=== PATIENT | male | born 1970 | race Hispanic/Latino ===

== ENCOUNTER 2019-12-27 16:01 | Inpatient (IN) | payer MEDICARE, OTHER ==
[2019-12-26 20:50] VITALS: BP 105/48
[~2019-12-27] VITALS: Ht 175.3 cm; Wt 127.0 kg
[~2019-12-27 16:01] MED LIST: AMBIEN10 MG PO; ATORVASTATIN CA20 MG PO; BASAGLAR K100 UNIT/1 SQ; CEFTIN500 MG PO; DOXYCYCLINE HY100 MG PO; GLYBURIDE; JANUMET XR 1001 EACH PO; LANTUS100 UNITS/; METFORMIN HCL500 MG PO; NITROFURANTOIN100 MG PO; NORCO 10-325 T1 EACH PO
[2019-12-27] MEDS ORDERED: SODIUM CHLORIDE 0.9% 1000ML 1,000 ML IV SCH ×2 (16:15→17:30)
[2019-12-27 16:32] LABS: BILIRUBIN,URINE SMALL (NEGATIVE); CLARITY,URINE SL CLOUDY (CLEAR); COLOR,URINE ORANGE (YELLOW); KETONES,URINE TRACE (NEGATIVE); LEUKOCYTE ESTERASE ,URINE LARGE (NEGATIVE); NITRITE,URINE POSITIVE (NEGATIVE); PROTEIN,URINE DIPSTICK >=300 (NEGATIVE); URINE UROBILINOGEN 2 mg/dL (0.2 - 1)
[2019-12-27 16:35] LABS: BASOPHILS # (AUTO) 0.1 (0.0-0.1); BASOPHILS % 0.2 % (0.0-1.0); EOSINOPHILS # (AUTO) 0.1 (0.0-0.4); EOSINOPHILS % 0.3 % (0.0-6.0); HEMATOCRIT 29.4 % (38.2-49.6); HEMOGLOBIN 9.4 g/dL (14.0-18.0); LYMPHOCYTES # (AUTO) 1.8 (1.0-3.2); LYMPHOCYTES % 7.8 % (18.0-39.1); MEAN CORPUSCULAR HEMOGLOBIN 25.5 pg (28-32); MEAN CORPUSCULAR VOLUME 79.9 fL (81-99); MONOCYTES # (AUTO) 1.2 (0.2-0.8); MONOCYTES % 4.9 % (4.4-11.3); NEUTROPHILS # (AUTO) 20.2 (2.1-6.9); NEUTROPHILS % 85.9 % (38.7-80.0); PLATELET COUNT 358 x10e3/uL (140-360); RED BLOOD COUNT 3.68 x10e6/uL (4.3-5.7); RED CELL DISTRIBUTION WIDTH 16.5 % (11.7-14.4)
[2019-12-27 16:44] LABS: BACTERIA,URINE MANY /HPF; WBC,URINE (MAN) 21-50 /HPF (0-5)
[2019-12-27 16:49] LABS: ALANINE AMINOTRANSFERASE 31 IU/L (0-55); ALBUMIN 2.6 g/dL (3.5-5.0); ALBUMIN/GLOBULIN RATIO 0.5 (0.8-2.0); ALKALINE PHOSPHATASE 153 IU/L (40-150); BLOOD UREA NITROGEN 31 mg/dL (7-26); BUN/CREATININE RATIO 29 (6-25); CALCIUM 8.9 mg/dL (8.4-10.2); CARBON DIOXIDE 19 mmol/L (22-29); CHLORIDE 100 mmol/L (98-107); CREATININE, SERUM 1.07 mg/dL (0.72-1.25); EST GLOMERULAR FILTRATION RATE > 60 ML/MIN (60-); GLUCOSE 190 mg/dL (74-118); SODIUM 130 mmol/L (136-145)
[2019-12-27] MEDS ORDERED: PIPERACILLIN/TAZO 4.5 GM 100 ML IV ONE (17:15)
[2019-12-27] MEDS: FENTANYL CITRATE/PF 100MCG/2 ML INJ IV PRN ×2 (17:24→21:10)
[2019-12-27] MEDS ORDERED: ONDANSETRON HCL INJ 2MG/ML 2ML 2 MG/ML VIAL IV STA (17:25)
[2019-12-27] MEDS ORDERED: SODIUM CHLORIDE 0.9% 500ML 500 ML IV STA (17:32)
[2019-12-27] MEDS ORDERED: ONDANSETRON HCL INJ 2MG/ML 2ML 2 MG/ML VIAL ONE (17:35)
[2019-12-27] MEDS ORDERED: CLINDAMYCIN PHOS 900MG/ 50ML 50 ML IV ONE (18:00)
[2019-12-27] MEDS: SODIUM CHLORIDE 0.9% 1000ML 1,000 ML IV SCH (18:19)
[2019-12-27 19:57] LABS: BASOPHILS # (AUTO) 0.1 (0.0-0.1); BASOPHILS % 0.3 % (0.0-1.0); EOSINOPHILS % 0.2 % (0.0-6.0); HEMATOCRIT 25.6 % (38.2-49.6); HEMOGLOBIN 8.2 g/dL (14.0-18.0); LYMPHOCYTES % 5.2 % (18.0-39.1); MEAN CORPUSCULAR HEMOGLOBIN 25.5 pg (28-32); MEAN CORPUSCULAR VOLUME 79.8 fL (81-99); MONOCYTES # (AUTO) 0.9 (0.2-0.8); MONOCYTES % 4.4 % (4.4-11.3); NEUTROPHILS # (AUTO) 17.8 (2.1-6.9); PLATELET COUNT 297 x10e3/uL (140-360); RED BLOOD COUNT 3.21 x10e6/uL (4.3-5.7); RED CELL DISTRIBUTION WIDTH 16.5 % (11.7-14.4)
[2019-12-27 20:08] LABS: ALANINE AMINOTRANSFERASE 28 IU/L (0-55); ALBUMIN 2.3 g/dL (3.5-5.0); ALBUMIN/GLOBULIN RATIO 0.5 (0.8-2.0); ALKALINE PHOSPHATASE 135 IU/L (40-150); ANION GAP 13.8 mmol/L (8-16); BLOOD UREA NITROGEN 30 mg/dL (7-26); BUN/CREATININE RATIO 29 (6-25); CALCIUM 8.2 mg/dL (8.4-10.2); CARBON DIOXIDE 21 mmol/L (22-29); CHLORIDE 102 mmol/L (98-107); CREATININE, SERUM 1.02 mg/dL (0.72-1.25); EST GLOMERULAR FILTRATION RATE > 60 ML/MIN (60-); GLUCOSE 226 mg/dL (74-118); POTASSIUM 4.8 mmol/L (3.5-5.1); SODIUM 132 mmol/L (136-145)
[2019-12-27 20:50] VITALS: BP 105/48
[2019-12-27 21:11] VITALS: BP 105/48
[2019-12-27] MEDS ORDERED: DEXTROSE 50% SYRINGE 50 ML IV PRN (21:30)
[2019-12-27] MEDS ORDERED: HYDROCODONE/APAP 10MG-325MG TAB PO PRN (21:30)
[2019-12-27] MEDS: ACETAMINOPHEN 325 MG TAB PO PRN (22:30)
[2019-12-28] VITALS (9 sets, daily range): BP systolic 93–131; BP diastolic 43–59
[2019-12-28] MEDS: FENTANYL CITRATE/PF 100MCG/2 ML INJ IV PRN ×3 (01:22→11:16)
[2019-12-28] MEDS: CLINDAMYCIN 600MG / 50ML 50 ML IV SCH ×3 (01:24→18:00)
[2019-12-28] MEDS: SODIUM CHLORIDE 0.9% 1000ML 1,000 ML IV SCH ×4 (01:45→18:01)
[2019-12-28] MEDS: ACETAMINOPHEN 325 MG TAB PO PRN (05:10)
[2019-12-28] MEDS: PIPER-TAZ 3.375 GM 50 ML IV SCH ×4 (06:00→18:01)
[2019-12-28 06:56] LABS: ANION GAP 14.5 mmol/L (8-16); BLOOD UREA NITROGEN 33 mg/dL (7-26); BUN/CREATININE RATIO 28 (6-25); CALCIUM 8.1 mg/dL (8.4-10.2); CARBON DIOXIDE 18 mmol/L (22-29); CHLORIDE 102 mmol/L (98-107); EST GLOMERULAR FILTRATION RATE > 60 ML/MIN (60-); GLUCOSE 201 mg/dL (74-118); POTASSIUM 4.5 mmol/L (3.5-5.1); SODIUM 130 mmol/L (136-145)
[2019-12-28 07:06] LABS: BASOPHILS % 0.2 % (0.0-1.0); HEMATOCRIT 23.2 % (38.2-49.6); HEMOGLOBIN 7.4 g/dL (14.0-18.0); LYMPHOCYTES # (AUTO) 1.5 (1.0-3.2); LYMPHOCYTES % 8.6 % (18.0-39.1); MEAN CORPUSCULAR HEMOGLOBIN 25.3 pg (28-32); MEAN CORPUSCULAR HGB CONC 31.9 g/dL (31-35); MEAN CORPUSCULAR VOLUME 79.2 fL (81-99); MONOCYTES # (AUTO) 0.9 (0.2-0.8); MONOCYTES % 5.5 % (4.4-11.3); NEUTROPHILS # (AUTO) 14.6 (2.1-6.9); NEUTROPHILS % 84.9 % (38.7-80.0); PLATELET COUNT 270 x10e3/uL (140-360); RED BLOOD COUNT 2.93 x10e6/uL (4.3-5.7); RED CELL DISTRIBUTION WIDTH 16.4 % (11.7-14.4)
[2019-12-28] MEDS: NITROFURANTOIN MACROCRYSTALS 100 MG CAP PO SCH ×2 (09:13→18:00)
[2019-12-28] MEDS: INSULIN REGULAR, HUMAN 100 UNIT/1 ML 3ML VIAL SQ SCH ×4 (09:18→20:30)
[2019-12-28] MEDS ORDERED: HYDROMORPHONE HCL 2 MG TAB PO PRN (12:45)
[2019-12-28] MEDS: ATORVASTATIN 20 MG TAB PO SCH (20:30)
[2019-12-28] MEDS ORDERED: ZOLPIDEM TARTRATE 10 MG TAB PO SCH (21:00)
[2019-12-28] MEDS: HYDROMORPHONE 2MG/ML 2 MG/ML ML IV PRN (22:25)
[2019-12-29] VITALS (7 sets, daily range): BP systolic 96–130; BP diastolic 48–68
[2019-12-29] MEDS: SODIUM CHLORIDE 0.9% 1000ML 1,000 ML IV SCH (01:45)
[2019-12-29] MEDS: CLINDAMYCIN 600MG / 50ML 50 ML IV SCH ×3 (02:00→17:18)
[2019-12-29] MEDS: HYDROMORPHONE 2MG/ML 2 MG/ML ML IV PRN ×5 (02:29→20:00)
[2019-12-29] MEDS: PIPER-TAZ 3.375 GM 50 ML IV SCH ×4 (05:46→17:30)
[2019-12-29 06:32] LABS: ANION GAP 13.2 mmol/L (8-16); BLOOD UREA NITROGEN 28 mg/dL (7-26); BUN/CREATININE RATIO 25 (6-25); CALCIUM 7.9 mg/dL (8.4-10.2); CARBON DIOXIDE 19 mmol/L (22-29); CHLORIDE 103 mmol/L (98-107); CREATININE, SERUM 1.12 mg/dL (0.72-1.25); EST GLOMERULAR FILTRATION RATE > 60 ML/MIN (60-); GLUCOSE 168 mg/dL (74-118); POTASSIUM 4.2 mmol/L (3.5-5.1); SODIUM 131 mmol/L (136-145)
[2019-12-29 06:55] LABS: BASOPHILS % 0.3 % (0.0-1.0); EOSINOPHILS % 0.1 % (0.0-6.0); LYMPHOCYTES # (AUTO) 1.6 (1.0-3.2); LYMPHOCYTES % 14.4 % (18.0-39.1); MEAN CORPUSCULAR HEMOGLOBIN 25.8 pg (28-32); MEAN CORPUSCULAR HGB CONC 31.9 g/dL (31-35); MEAN CORPUSCULAR VOLUME 80.8 fL (81-99); MONOCYTES # (AUTO) 0.7 (0.2-0.8); MONOCYTES % 6.5 % (4.4-11.3); NEUTROPHILS # (AUTO) 8.8 (2.1-6.9); NEUTROPHILS % 78.3 % (38.7-80.0); PLATELET COUNT 235 x10e3/uL (140-360); RED CELL DISTRIBUTION WIDTH 16.6 % (11.7-14.4)
[2019-12-29 07:04] LABS: HEMOGLOBIN 6.7 g/dL (14.0-18.0)
[2019-12-29 08:42] LABS: ANISOCYTOSIS SLIGHT; PLATELET ESTIMATE ADEQUATE; PLATELET MORPHOLOGY COMMENT RARE EDTA CLUMPING; RBC MORPHOLOGY COMMENT NORMAL
[2019-12-29 08:43] LABS: LARGE PLATELETS FEW
[2019-12-29] MEDS: NITROFURANTOIN MACROCRYSTALS 100 MG CAP PO SCH ×2 (09:29→17:18)
[2019-12-29] MEDS: INSULIN REGULAR, HUMAN 100 UNIT/1 ML 3ML VIAL SQ SCH ×4 (09:30→20:14)
[2019-12-29] MEDS ORDERED: SODIUM CHLORIDE 0.9% 250ML 250 ML IV ONE (11:00)
[2019-12-29] MEDS: ACETAMINOPHEN 325 MG TAB PO PRN ×2 (15:05→21:30)
[2019-12-29] MEDS ORDERED: SODIUM CHLORIDE 0.9% 250ML 250 ML ONE (18:15)
[2019-12-29] MEDS: ATORVASTATIN 20 MG TAB PO SCH (20:13)
[2019-12-29] MEDS: TEMAZEPAM 15 MG CAP PO PRN (20:14)
[2019-12-30] VITALS (8 sets, daily range): BP systolic 93–155; BP diastolic 51–73
[2019-12-30] MEDS: HYDROMORPHONE 2MG/ML 2 MG/ML ML IV PRN ×5 (00:34→20:57)
[2019-12-30] MEDS: PIPER-TAZ 3.375 GM 50 ML IV SCH ×4 (00:34→17:58)
[2019-12-30] MEDS: ONDANSETRON HCL INJ 2MG/ML 2ML 2 MG/ML VIAL IV PRN ×2 (04:30→13:35)
[2019-12-30] MEDS: ACETAMINOPHEN 325 MG TAB PO PRN (05:37)
[2019-12-30] MEDS: INSULIN REGULAR, HUMAN 100 UNIT/1 ML 3ML VIAL SQ SCH ×4 (07:30→21:53)
[2019-12-30 18:29] LABS: BASOPHILS % 0.2 % (0.0-1.0); EOSINOPHILS % 0.1 % (0.0-6.0); HEMATOCRIT 25.7 % (38.2-49.6); HEMOGLOBIN 8.3 g/dL (14.0-18.0); LYMPHOCYTES # (AUTO) 1.2 (1.0-3.2); LYMPHOCYTES % 10.9 % (18.0-39.1); MEAN CORPUSCULAR HEMOGLOBIN 25.8 pg (28-32); MEAN CORPUSCULAR HGB CONC 32.3 g/dL (31-35); MEAN CORPUSCULAR VOLUME 79.8 fL (81-99); MONOCYTES # (AUTO) 0.6 (0.2-0.8); MONOCYTES % 5.4 % (4.4-11.3); NEUTROPHILS # (AUTO) 8.8 (2.1-6.9); NEUTROPHILS % 82.9 % (38.7-80.0); PLATELET COUNT 208 x10e3/uL (140-360); RED BLOOD COUNT 3.22 x10e6/uL (4.3-5.7); RED CELL DISTRIBUTION WIDTH 15.9 % (11.7-14.4)
[2019-12-30 19:05] LABS: BLOOD UREA NITROGEN 17 mg/dL (7-26); BUN/CREATININE RATIO 18 (6-25); CARBON DIOXIDE 17 mmol/L (22-29); CHLORIDE 101 mmol/L (98-107); CREATININE, SERUM 0.94 mg/dL (0.72-1.25); EST GLOMERULAR FILTRATION RATE > 60 ML/MIN (60-); GLUCOSE 335 mg/dL (74-118); SODIUM 128 mmol/L (136-145)
[2019-12-30] MEDS: ATORVASTATIN 20 MG TAB PO SCH (20:56)
[2019-12-30] MEDS: TEMAZEPAM 15 MG CAP PO PRN (21:35)
[2019-12-31] VITALS (8 sets, daily range): BP systolic 103–140; BP diastolic 51–78
[2019-12-31] MEDS: HYDROMORPHONE 2MG/ML 2 MG/ML ML IV PRN ×5 (02:16→21:30)
[2019-12-31] MEDS: PIPER-TAZ 3.375 GM 50 ML IV SCH ×4 (05:53→17:53)
[2019-12-31 07:30] LABS: BASOPHILS % 0.4 % (0.0-1.0); EOSINOPHILS # (AUTO) 0.1 (0.0-0.4); EOSINOPHILS % 0.7 % (0.0-6.0); HEMATOCRIT 25.1 % (38.2-49.6); LYMPHOCYTES # (AUTO) 2.1 (1.0-3.2); LYMPHOCYTES % 20.3 % (18.0-39.1); MEAN CORPUSCULAR HEMOGLOBIN 25.6 pg (28-32); MEAN CORPUSCULAR HGB CONC 31.9 g/dL (31-35); MEAN CORPUSCULAR VOLUME 80.2 fL (81-99); MONOCYTES # (AUTO) 0.9 (0.2-0.8); MONOCYTES % 8.5 % (4.4-11.3); NEUTROPHILS # (AUTO) 7.2 (2.1-6.9); NEUTROPHILS % 69.4 % (38.7-80.0); PLATELET COUNT 236 x10e3/uL (140-360); RED BLOOD COUNT 3.13 x10e6/uL (4.3-5.7); RED CELL DISTRIBUTION WIDTH 16.4 % (11.7-14.4)
[2019-12-31] MEDS: INSULIN REGULAR, HUMAN 100 UNIT/1 ML 3ML VIAL SQ SCH ×4 (07:30→21:17)
[2019-12-31] MEDS: ATORVASTATIN 20 MG TAB PO SCH (21:13)
[2019-12-31] MEDS: TEMAZEPAM 15 MG CAP PO PRN (21:30)
[2020-01-01] VITALS (8 sets, daily range): BP systolic 112–147; BP diastolic 44–62
[2020-01-01] MEDS: HYDROMORPHONE 2MG/ML 2 MG/ML ML IV PRN ×5 (05:03→23:18)
[2020-01-01] MEDS: PIPER-TAZ 3.375 GM 50 ML IV SCH ×5 (06:02→23:16)
[2020-01-01] MEDS: ONDANSETRON HCL INJ 2MG/ML 2ML 2 MG/ML VIAL IV PRN ×4 (08:57→23:18)
[2020-01-01] MEDS: INSULIN REGULAR, HUMAN 100 UNIT/1 ML 3ML VIAL SQ SCH ×4 (09:38→20:49)
[2020-01-01] MEDS: ATORVASTATIN 20 MG TAB PO SCH (20:49)
[2020-01-01] MEDS: INSULIN GLARGINE 100 UNITS/ML VIAL SQ SCH (20:51)
[2020-01-02] VITALS (9 sets, daily range): BP systolic 127–178; BP diastolic 53–76
[2020-01-02] MEDS: PIPER-TAZ 3.375 GM 50 ML IV SCH ×4 (05:27→23:56)
[2020-01-02 05:55] LABS: BASOPHILS % 0.4 % (0.0-1.0); EOSINOPHILS # (AUTO) 0.2 (0.0-0.4); EOSINOPHILS % 1.9 % (0.0-6.0); HEMATOCRIT 24.5 % (38.2-49.6); LYMPHOCYTES # (AUTO) 2.4 (1.0-3.2); LYMPHOCYTES % 22.3 % (18.0-39.1); MEAN CORPUSCULAR HEMOGLOBIN 26.1 pg (28-32); MEAN CORPUSCULAR HGB CONC 32.7 g/dL (31-35); MEAN CORPUSCULAR VOLUME 79.8 fL (81-99); MONOCYTES # (AUTO) 0.6 (0.2-0.8); MONOCYTES % 5.6 % (4.4-11.3); NEUTROPHILS # (AUTO) 7.4 (2.1-6.9); NEUTROPHILS % 68.3 % (38.7-80.0); PLATELET COUNT 267 x10e3/uL (140-360); RED BLOOD COUNT 3.07 x10e6/uL (4.3-5.7); RED CELL DISTRIBUTION WIDTH 15.8 % (11.7-14.4)
[2020-01-02 06:27] LABS: ANION GAP 9.9 mmol/L (8-16); BLOOD UREA NITROGEN 11 mg/dL (7-26); BUN/CREATININE RATIO 14 (6-25); CALCIUM 8.2 mg/dL (8.4-10.2); CARBON DIOXIDE 23 mmol/L (22-29); CHLORIDE 105 mmol/L (98-107); CREATININE, SERUM 0.79 mg/dL (0.72-1.25); EST GLOMERULAR FILTRATION RATE > 60 ML/MIN (60-); GLUCOSE 203 mg/dL (74-118); POTASSIUM 3.9 mmol/L (3.5-5.1); SODIUM 134 mmol/L (136-145)
[2020-01-02] MEDS: ONDANSETRON HCL INJ 2MG/ML 2ML 2 MG/ML VIAL IV PRN ×2 (07:49→20:17)
[2020-01-02] MEDS: HYDROMORPHONE 2MG/ML 2 MG/ML ML IV PRN ×4 (07:49→20:16)
[2020-01-02] MEDS: INSULIN REGULAR, HUMAN 100 UNIT/1 ML 3ML VIAL SQ SCH ×4 (09:51→20:15)
[2020-01-02] MEDS: INSULIN GLARGINE 100 UNITS/ML VIAL SQ SCH ×2 (10:17→20:16)
[2020-01-02] MEDS ORDERED: SODIUM CHLORIDE 0.9% 250ML 250 ML ONE (11:41)
[2020-01-02] MEDS ORDERED: IOPAMIDOL 300MG/ML 50ML INFUS..BTL IV ONE (12:36)
[2020-01-02] MEDS ORDERED: ETOMIDATE 2 MG/ML 10 ML INJ IV ONE (13:31)
[2020-01-02] MEDS ORDERED: NEOSTIGMINE 1 MG/ML 10ML VIAL ONE (13:31)
[2020-01-02] MEDS ORDERED: PROPOFOL IV EMULSION 10 MG/ML 20 ML VIAL ONE (13:31)
[2020-01-02] MEDS ORDERED: ROCURONIUM BROMIDE 10 MG/ML 5ML VIAL IV ONE (13:31)
[2020-01-02] MEDS ORDERED: ONDANSETRON HCL INJ 2MG/ML 2ML 2 MG/ML VIAL ONE ×2 (13:31→15:25)
[2020-01-02] MEDS ORDERED: SEVOFLURANE INHAL SOLN 250 ML PEN BTL ONE (13:31)
[2020-01-02] MEDS ORDERED: GLYCOPYRROLATE INJ 0.2 MG/ML VIAL ONE (13:31)
[2020-01-02] MEDS ORDERED: MIDAZOLAM HCL 2 MG/2 ML VIAL ONE (17:50)
[2020-01-02] MEDS ORDERED: FENTANYL CITRATE/PF 100MCG/2 ML INJ ONE (17:50)
[2020-01-02] MEDS: ATORVASTATIN 20 MG TAB PO SCH (20:12)
[2020-01-03] VITALS (11 sets, daily range): BP systolic 127–156; BP diastolic 46–53
[2020-01-03] MEDS: PIPER-TAZ 3.375 GM 50 ML IV SCH ×4 (05:24→23:20)
[2020-01-03] MEDS: INSULIN REGULAR, HUMAN 100 UNIT/1 ML 3ML VIAL SQ SCH ×4 (07:30→20:37)
[2020-01-03] MEDS: HYDROMORPHONE 2MG/ML 2 MG/ML ML IV PRN ×5 (08:07→21:02)
[2020-01-03] MEDS: INSULIN GLARGINE 100 UNITS/ML VIAL SQ SCH ×2 (10:25→20:37)
[2020-01-03] MEDS: ATORVASTATIN 20 MG TAB PO SCH (20:37)
[2020-01-04] VITALS: BP 142/48
[2020-01-04] MEDS: HYDROMORPHONE 2MG/ML 2 MG/ML ML IV PRN ×4 (01:01→13:45)
[2020-01-04 04:00] VITALS: BP 143/66
[2020-01-04] MEDS: PIPER-TAZ 3.375 GM 50 ML IV SCH ×4 (05:17→17:28)
[2020-01-04 06:05] LABS: BASOPHILS % 0.5 % (0.0-1.0); EOSINOPHILS # (AUTO) 0.3 (0.0-0.4); EOSINOPHILS % 3.6 % (0.0-6.0); HEMATOCRIT 25.3 % (38.2-49.6); HEMOGLOBIN 8.1 g/dL (14.0-18.0); LYMPHOCYTES # (AUTO) 1.9 (1.0-3.2); LYMPHOCYTES % 24.3 % (18.0-39.1); MEAN CORPUSCULAR HEMOGLOBIN 26.3 pg (28-32); MEAN CORPUSCULAR VOLUME 82.1 fL (81-99); MONOCYTES # (AUTO) 0.4 (0.2-0.8); MONOCYTES % 5.4 % (4.4-11.3); NEUTROPHILS # (AUTO) 5.2 (2.1-6.9); NEUTROPHILS % 64.9 % (38.7-80.0); PLATELET COUNT 321 x10e3/uL (140-360); RED BLOOD COUNT 3.08 x10e6/uL (4.3-5.7); RED CELL DISTRIBUTION WIDTH 16.1 % (11.7-14.4)
[2020-01-04 06:21] LABS: BLOOD UREA NITROGEN 14 mg/dL (7-26); BUN/CREATININE RATIO 16 (6-25); CALCIUM 8.2 mg/dL (8.4-10.2); CARBON DIOXIDE 23 mmol/L (22-29); CHLORIDE 109 mmol/L (98-107); CREATININE, SERUM 0.87 mg/dL (0.72-1.25); EST GLOMERULAR FILTRATION RATE > 60 ML/MIN (60-); GLUCOSE 179 mg/dL (74-118); SODIUM 138 mmol/L (136-145)
[2020-01-04 07:46] VITALS: BP 128/66
[2020-01-04 08:07] VITALS: BP 128/66
[2020-01-04] MEDS: ONDANSETRON HCL INJ 2MG/ML 2ML 2 MG/ML VIAL IV PRN ×2 (09:30→13:45)
[2020-01-04] MEDS: INSULIN REGULAR, HUMAN 100 UNIT/1 ML 3ML VIAL SQ SCH ×3 (09:40→16:30)
[2020-01-04] MEDS: INSULIN GLARGINE 100 UNITS/ML VIAL SQ SCH (09:43)
[2020-01-04 11:53] VITALS: BP 135/58
[2020-01-04 16:00] VITALS: BP_SYST 134; BP_SYST 135; BP_DIAS 50; BP_DIAS 58
[2020-01-04] MEDS ORDERED: FOSFOMYCIN TROMETHAMINE 3 GM PACKET PO ONE (17:00)
[2020-01-04] MEDS ORDERED: TYLENOL # 31 EA PO (18:03)
[2020-01-04] MEDS ORDERED: METHENAMINE HIPPURATE PO (18:07)
== END 2020-01-04 19:00 | disposition home health service (06) | DRG 698 ==
LOC: ER 16:30 → ERHOLD 17:34 → MED/SURG3 21:00
PROC: 30233N1 Transfusion of Nonautologous Red Blood Cells into Peripheral Vein, Percutaneous Approach (ICD-10-PCS; 2019-12-29)
PROC: 0TCB8ZZ Extirpation of Matter from Bladder, Via Natural or Artificial Opening Endoscopic (ICD-10-PCS; principal; 2020-01-02 14:00)
PROC: 0T2BX0Z Change Drainage Device in Bladder, External Approach (ICD-10-PCS; 2020-01-02 14:00)
DX: T83.510A Infection and inflammatory reaction due to cystostomy catheter, initial encounter (principal); L89.324 Pressure ulcer of left buttock, stage 4; A41.9 Sepsis, unspecified organism; L89.153 Pressure ulcer of sacral region, stage 3; R65.21 Severe sepsis with septic shock; N39.0 Urinary tract infection, site not specified; G82.20 Paraplegia, unspecified; N17.9 Acute kidney failure, unspecified; E87.1 Hypo-osmolality and hyponatremia; M86.68 Other chronic osteomyelitis, other site; Z68.41 Body mass index [BMI] 40.0-44.9, adult; Z88.1 Allergy status to other antibiotic agents; E11.9 Type 2 diabetes mellitus without complications; D64.9 Anemia, unspecified; E66.01 Morbid (severe) obesity due to excess calories; G89.29 Other chronic pain; E66.9 Obesity, unspecified; N21.0 Calculus in bladder; R31.29 Other microscopic hematuria; N31.9 Neuromuscular dysfunction of bladder, unspecified; N39.498 Other specified urinary incontinence; N32.81 Overactive bladder; D63.8 Anemia in other chronic diseases classified elsewhere; Z79.4 Long term (current) use of insulin
CPT/HCPCS: 36415; 74430; 80048; 80053; 81001; 82948; 83605; 85025; 86850; 86900; 86920; 87040; 87071; 87086; 87186; 87205; 88300; 99251; 99284; C1758; J1815; J1817; J2250; J2405; J2543; J2710; J3010; J7030; J7040; J7050; P9016; U0002

== ENCOUNTER → 2020-02-04 | Outpatient (CLI) | payer MEDICARE ==
[~2020-02-04] MED LIST changes: +METHENAMINE HIPPURATE PO; +TYLENOL # 31 EA PO
[2020-02-14 16:11] LABS: ANION GAP 13.4 mmol/L (8-16); BLOOD UREA NITROGEN 18 mg/dL (7-26); BUN/CREATININE RATIO 27 (6-25); CALCIUM 9.1 mg/dL (8.4-10.2); CARBON DIOXIDE 21 mmol/L (22-29); CHLORIDE 108 mmol/L (98-107); CREATININE, SERUM 0.66 mg/dL (0.72-1.25); EST GLOMERULAR FILTRATION RATE > 60 ML/MIN (60-); GLUCOSE 138 mg/dL (74-118); POTASSIUM 4.4 mmol/L (3.5-5.1); SODIUM 138 mmol/L (136-145)
== END ==
LOC: DX 15:51 → EDSTATUS 02-19 11:00
PROVIDERS: ATTEND Urology
DX: Z01.812 Encounter for preprocedural laboratory examination (principal); Z20.828 Contact with and (suspected) exposure to other viral communicable diseases; N21.0 Calculus in bladder
CPT/HCPCS: 36415; 80048; 93005; U0002

== ENCOUNTER 2021-05-06 13:29 | Inpatient (IN) | payer MEDICARE ==
[~2021-05-06] VITALS: Ht 175.3 cm; Wt 133.8 kg
[~2021-05-06 13:29] MED LIST changes: +JANUMET 50-1,01 EACH PO; +LANTUS 3ML100 UNITS/ SC
[2021-05-06] MEDS ORDERED: CEFTRIAXONE 1 GM VIAL IM ONE (13:45)
[2021-05-06] MEDS ORDERED: SODIUM CHLORIDE 0.9% 1000ML 1,000 ML IV STA (13:45)
[2021-05-06 14:05] LABS: BASOPHILS % 0.1 % (0.0-1.0); EOSINOPHILS % 0.2 % (0.0-6.0); HEMATOCRIT 24.8 % (38.2-49.6); LYMPHOCYTES # (AUTO) 1.1 (1.0-3.2); LYMPHOCYTES % 8.9 % (18.0-39.1); MEAN CORPUSCULAR HEMOGLOBIN 26.2 pg (28-32); MEAN CORPUSCULAR HGB CONC 32.3 g/dL (31-35); MEAN CORPUSCULAR VOLUME 81.3 fL (81-99); MONOCYTES # (AUTO) 0.6 (0.2-0.8); MONOCYTES % 5.2 % (4.4-11.3); NEUTROPHILS # (AUTO) 10.1 (2.1-6.9); NEUTROPHILS % 85.1 % (38.7-80.0); PLATELET COUNT 262 x10e3/uL (140-360); RED BLOOD COUNT 3.05 x10e6/uL (4.3-5.7); RED CELL DISTRIBUTION WIDTH 16.8 % (11.7-14.4)
[2021-05-06 14:09] LABS: INR 1.11; PROTHROMBIN TIME 15.3 seconds (11.9-14.5)
[2021-05-06 14:10] LABS: PARTIAL THROMBOPLASTIN TIME 46.2 seconds (23.8-35.5)
[2021-05-06 14:16] LABS: ANION GAP 12.6 mmol/L (8-16); CALCIUM 7.8 mg/dL (8.4-10.2); CREATININE, SERUM 1.53 mg/dL (0.72-1.25); POTASSIUM 4.6 mmol/L (3.5-5.1)
[2021-05-06 14:17] LABS: ALBUMIN/GLOBULIN RATIO 0.4 (0.8-2.0)
[2021-05-06 14:22] LABS: CLARITY,URINE TURBID (CLEAR); COLOR,URINE BROWN (YELLOW); LEUKOCYTE ESTERASE ,URINE SMALL (NEGATIVE); NITRITE,URINE NEGATIVE (NEGATIVE); PROTEIN,URINE DIPSTICK >=300 (NEGATIVE)
[2021-05-06 14:23] LABS: BACTERIA,URINE MANY /HPF; CREATINE KINASE MB 0.2 ng/mL (0-5.0); EPITHELIAL CELLS,URINE RARE /LPF; KETONES,URINE TRACE (NEGATIVE); URINE UROBILINOGEN 0.2 mg/dL (0.2 - 1)
[2021-05-06] MEDS ORDERED: SODIUM CHLORIDE 0.9% 50ML 50 ML ONE (14:38)
[2021-05-06] MEDS ORDERED: IOPAMIDOL 370 MG/ML 200 ML INFUS..BTL INJ ONE (14:38)
[2021-05-06 21:00] VITALS: BP 128/48
[2021-05-06] MEDS: ONDANSETRON HCL INJ 2MG/ML 2ML 2 MG/ML VIAL IV PRN (21:54)
[2021-05-06] MEDS: Morphine 4mg Syringe 4 MG/ML INJ IV PRN (21:54)
[2021-05-06] MEDS: SODIUM CHLORIDE 0.9% 1000ML 1,000 ML IV SCH (21:54)
[2021-05-06 22:00] VITALS: BP 128/48
[2021-05-06] MEDS: CEFEPIME 1 GM in SODIUM CHLORIDE 0.9% 50ML 50 ML IV SCH (22:59)
[2021-05-06] MEDS ORDERED: GUAIFENESIN/DEXTROMETHORPHAN LIQD 5 ML UDC PO PRN (23:00)
[2021-05-06] MEDS: ACETAMINOPHEN 325 MG TAB PO PRN (23:18)
[2021-05-07] VITALS (7 sets, daily range): BP systolic 86–140; BP diastolic 36–101
[2021-05-07] MEDS: SODIUM CHLORIDE 0.9% 1000ML 1,000 ML IV SCH ×6 (01:30→20:03)
[2021-05-07] MEDS: Morphine 4mg Syringe 4 MG/ML INJ IV PRN (02:15)
[2021-05-07] MEDS: ONDANSETRON HCL INJ 2MG/ML 2ML 2 MG/ML VIAL IV PRN ×2 (02:15→10:36)
[2021-05-07 06:11] LABS: BASOPHILS # (AUTO) 0.1 (0.0-0.1); BASOPHILS % 0.4 % (0.0-1.0); EOSINOPHILS % 0.2 % (0.0-6.0); HEMATOCRIT 27.6 % (38.2-49.6); HEMOGLOBIN 8.5 g/dL (14.0-18.0); LYMPHOCYTES # (AUTO) 0.6 (1.0-3.2); LYMPHOCYTES % 3.4 % (18.0-39.1); MEAN CORPUSCULAR HEMOGLOBIN 26.4 pg (28-32); MEAN CORPUSCULAR HGB CONC 30.8 g/dL (31-35); MEAN CORPUSCULAR VOLUME 85.7 fL (81-99); MONOCYTES # (AUTO) 0.2 (0.2-0.8); MONOCYTES % 1.5 % (4.4-11.3); NEUTROPHILS # (AUTO) 15.4 (2.1-6.9); NEUTROPHILS % 93.7 % (38.7-80.0); PLATELET COUNT 238 x10e3/uL (140-360); RED BLOOD COUNT 3.22 x10e6/uL (4.3-5.7); RED CELL DISTRIBUTION WIDTH 16.9 % (11.7-14.4)
[2021-05-07 06:39] LABS: ALBUMIN/GLOBULIN RATIO 0.4 (0.8-2.0); ANION GAP 13.9 mmol/L (8-16); CALCIUM 8.2 mg/dL (8.4-10.2); CREATININE, SERUM 1.67 mg/dL (0.72-1.25); POTASSIUM 3.9 mmol/L (3.5-5.1)
[2021-05-07 07:20] LABS: FREE THYROXINE INDEX 1.9464 (1.4-3.8); THYROID STIMULATING HORMONE 1.212 uIU/mL (0.350-4.940)
[2021-05-07] MEDS ORDERED: ASPIRIN 81 MG ENTERIC COATED PO SCH (09:00)
[2021-05-07] MEDS: CEFEPIME 1 GM in SODIUM CHLORIDE 0.9% 50ML 50 ML IV SCH ×2 (10:02→20:14)
[2021-05-07 10:03] LABS: BAND NEUTROPHILS % (MANUAL) 6 %; LYMPHOCYTES % (MANUAL) 1 % (19-48); MONOCYTES % (MANUAL) 1 % (3.4-9.0); NEUTROPHILS % (MANUAL) 92 % (40-74)
[2021-05-07 10:04] LABS: ANISOCYTOSIS SLIGHT; HYPOCHROMASIA SLIGHT; PLATELET ESTIMATE ADEQUATE; PLATELET MORPHOLOGY COMMENT NORMAL; RBC MORPHOLOGY COMMENT NORMAL
[2021-05-07] MEDS ORDERED: LORAZEPAM INJ 2 MG/ML VIAL IV PRN (11:45)
[2021-05-07] MEDS ORDERED: HYDROCODONE/APAP 10MG-325MG TAB PO PRN (11:45)
[2021-05-07] MEDS ORDERED: LIDOCAINE HCL 1% LOCAL INJ 20 ML VIAL ONE (14:44)
[2021-05-07] MEDS ORDERED: IOPAMIDOL 300MG/ML 100 ML INFUS..BTL IV ONE (14:44)
[2021-05-07] MEDS ORDERED: SODIUM CHLORIDE 0.9% 250ML 250 ML ONE ×2 (14:45→14:51)
[2021-05-07] MEDS ORDERED: MIDAZOLAM HCL 2 MG/2 ML VIAL ONE (14:51)
[2021-05-07] MEDS ORDERED: FENTANYL CITRATE/PF 100MCG/2 ML INJ ONE (14:51)
[2021-05-07] MEDS: ACETAMINOPHEN 325 MG TAB PO PRN (16:45)
[2021-05-07] MEDS ORDERED: OSELTAMIVIR PHOSPHATE 75 MG CAP PO SCH (17:00)
[2021-05-07] MEDS ORDERED: INSULIN GLARGINE HUM REC ANLOG 60 UNIT SQ SCH (21:00)
[2021-05-07] MEDS ORDERED: ATORVASTATIN 20 MG TAB PO SCH (21:00)
[2021-05-07] MEDS ORDERED: TEMAZEPAM 15 MG CAP PO PRN (21:00)
[2021-05-07] MEDS ORDERED: INSULIN GLARGINE 100 UNITS/ML VIAL SQ SCH (21:00)
[2021-05-07] MEDS ORDERED: [UNRECOGNIZED DRUG - OTHER] SQ SCH (21:00)
[2021-05-07 21:52] LABS: BASOPHILS % 0.1 % (0.0-1.0); EOSINOPHILS % 0.1 % (0.0-6.0); LYMPHOCYTES # (AUTO) 3.9 (1.0-3.2); LYMPHOCYTES % 24.5 % (18.0-39.1); MEAN CORPUSCULAR HEMOGLOBIN 26.1 pg (28-32); MEAN CORPUSCULAR HGB CONC 28.2 g/dL (31-35); MEAN CORPUSCULAR VOLUME 92.7 fL (81-99); MONOCYTES # (AUTO) 0.2 (0.2-0.8); NEUTROPHILS # (AUTO) 11.6 (2.1-6.9); NEUTROPHILS % 73.4 % (38.7-80.0); PLATELET COUNT 279 x10e3/uL (140-360); RED BLOOD COUNT 2.18 x10e6/uL (4.3-5.7); RED CELL DISTRIBUTION WIDTH 17.4 % (11.7-14.4)
[2021-05-07 21:57] LABS: HEMATOCRIT 20.2 % (38.2-49.6); HEMOGLOBIN 5.7 g/dL (14.0-18.0)
[2021-05-07] MEDS ORDERED: SODIUM CHLORIDE 0.9% 1000ML 2,000 ML ONE (21:58)
[2021-05-07 21:59] LABS: INR 1.58; PROTHROMBIN TIME 20.2 seconds (11.9-14.5)
[2021-05-07] MEDS ORDERED: SODIUM CHLORIDE 0.9% 250ML 250 ML IV ONE (22:00)
[2021-05-07 22:09] LABS: ALBUMIN 1.5 g/dL (3.5-5.0); ALBUMIN/GLOBULIN RATIO 0.4 (0.8-2.0); ANION GAP 24.1 mmol/L (8-16); CALCIUM 7.6 mg/dL (8.4-10.2); CREATININE, SERUM 2.39 mg/dL (0.72-1.25); POTASSIUM 4.1 mmol/L (3.5-5.1)
[2021-05-07 22:31] LABS: ABG PCO2 99 mmHg (35-45); ABG PH 6.69 (7.35-7.45); ABG PO2 79 mmHg (80-105)
[2021-05-07 22:32] LABS: ABG HCO3 12 mmol/L (22-26); ABG TCO2 15
[2021-05-07] MEDS ORDERED: EPINEPHRINE HCL 1:1000 1ML 4 MG in DEXTROSE 5% 250ML 250 ML IV SCH (23:15)
[2021-05-07] MEDS ORDERED: NOREPINEPHRINE 8 MG/D5W 250 ML 250 ML IV SCH (23:15)
[2021-05-07] MEDS ORDERED: SODIUM BICARBONATE 8.4% 150 ML in DEXTROSE 5% 1,000 ML IV SCH (23:30)
[2021-05-08] VITALS (23 sets, daily range): BP systolic 48–223; BP diastolic 11–91
[2021-05-08] MEDS ORDERED: DEXTROSE 5% 1,000 ML IV ONE (00:07)
[2021-05-08] MEDS ORDERED: LINEZOLID 600 MG/D5W 300ML 300 ML IV ONE (00:30)
[2021-05-08 00:34] LABS: ABG PCO2 61 mmHg (35-45); ABG PH 6.92 (7.35-7.45)
[2021-05-08 00:35] LABS: ABG HCO3 13 mmol/L (22-26); ABG PO2 126 mmHg (80-105); ABG TCO2 14
[2021-05-08] MEDS ORDERED: HYDROCORTISONE SOD SUCCINATE 100 MG VIAL IV SCH (00:45)
[2021-05-08] MEDS ORDERED: DEXTROSE 5% 250ML 250 ML IV ONE ×2 (00:56→05:48)
[2021-05-08] MEDS ORDERED: SODIUM BICARBONATE 8.4% 50 ML VIAL IV STA (01:07)
[2021-05-08] MEDS ORDERED: EPINEPHRINE HCL SYRINGE ONE ×2 (02:08→12:15)
[2021-05-08] MEDS ORDERED: SODIUM BICARBONATE 8.4% SYRING 150 ML ONE (02:32)
[2021-05-08] MEDS ORDERED: VASOPRESSIN 60 UNIT in DEXTROSE 5% 50ML 57 ML IV PRN (05:00)
[2021-05-08] MEDS ORDERED: INSULIN REGULAR, HUMAN 100 UNIT/1 ML IV ONE (05:00)
[2021-05-08 05:08] LABS: BASOPHILS # (AUTO) 0.2 (0.0-0.1); BASOPHILS % 0.5 % (0.0-1.0); HEMATOCRIT 31.7 % (38.2-49.6); HEMOGLOBIN 9.5 g/dL (14.0-18.0); LYMPHOCYTES % 8.5 % (18.0-39.1); MEAN CORPUSCULAR HEMOGLOBIN 27.2 pg (28-32); MEAN CORPUSCULAR VOLUME 90.8 fL (81-99); MONOCYTES # (AUTO) 0.9 (0.2-0.8); MONOCYTES % 1.9 % (4.4-11.3); NEUTROPHILS # (AUTO) 40.5 (2.1-6.9); NEUTROPHILS % 85.4 % (38.7-80.0); PLATELET COUNT 320 x10e3/uL (140-360); RED BLOOD COUNT 3.49 x10e6/uL (4.3-5.7); RED CELL DISTRIBUTION WIDTH 17.7 % (11.7-14.4)
[2021-05-08 05:44] LABS: THYROID STIMULATING HORMONE 2.458 uIU/mL (0.350-4.940)
[2021-05-08 05:45] LABS: ALBUMIN 1.7 g/dL (3.5-5.0); ALBUMIN/GLOBULIN RATIO 0.4 (0.8-2.0); ANION GAP 29.1 mmol/L (8-16); CALCIUM 8.3 mg/dL (8.4-10.2); CREATININE, SERUM 3.07 mg/dL (0.72-1.25); MAGNESIUM 1.9 MG/DL (1.3-2.1); PHOSPHORUS 6.5 MG/DL (2.3-4.7); POTASSIUM 4.1 mmol/L (3.5-5.1)
[2021-05-08] MEDS ORDERED: VASOPRESSIN INJ 20 UNIT/ML VIAL ONE (06:18)
[2021-05-08] MEDS ORDERED: DEXTROSE 5% 50ML 50 ML IV ONE (06:18)
[2021-05-08 07:12] LABS: BAND NEUTROPHILS % (MANUAL) 7 %; LYMPHOCYTES % (MANUAL) 9 % (19-48); MONOCYTES % (MANUAL) 1 % (3.4-9.0); MYELOCYTES % (MANUAL) 1 % (0-0); NEUTROPHILS % (MANUAL) 82 % (40-74); NUCLEATED RED BLOOD CELLS 1
[2021-05-08 07:13] LABS: ANISOCYTOSIS SLIGHT; PLATELET ESTIMATE ADEQUATE; PLATELET MORPHOLOGY COMMENT NORMAL; RBC MORPHOLOGY COMMENT ABNORMAL
[2021-05-08 07:14] LABS: HYPOCHROMASIA SLIGHT
[2021-05-08] MEDS ORDERED: SITAGLIPTIN 100 MG TAB PO SCH (08:00)
[2021-05-08] MEDS ORDERED: METFORMIN HCL 500 MG TAB CR PO SCH (08:00)
[2021-05-08] MEDS ORDERED: COLLAGENASE 5 GM TUBE TP SCH (09:00)
[2021-05-08] MEDS ORDERED: OSELTAMIVIR PHOSPHATE 30 MG CAPSULE PO SCH (09:00)
[2021-05-08] MEDS ORDERED: BALSAM PERU/CASTOR OIL 60 GM OINT...G. TP SCH (09:00)
[2021-05-08] MEDS ORDERED: SODIUM BICARBONATE 8.4% INJ 50 ML SYR ONE (12:15)
[2021-05-08] MEDS ORDERED: INSULIN GLARGINE 100 UNITS/ML VIAL SQ SCH (21:00)
== END 2021-05-08 21:46 | disposition expired | DRG 871 ==
LOC: ER 13:45 → ERHOLD 17:19 → MED/SURG2 20:41 → ICU 05-07 22:34 → IMCU 05-08 11:04
PROC: 5A1935Z Respiratory Ventilation, Less than 24 Consecutive Hours (ICD-10-PCS; principal; 2021-05-07)
PROC: 0BH18EZ Insertion of Endotracheal Airway into Trachea, Via Natural or Artificial Opening Endoscopic (ICD-10-PCS; 2021-05-07)
PROC: 5A12012 Performance of Cardiac Output, Single, Manual (ICD-10-PCS; 2021-05-07)
PROC: 03HY32Z Insertion of Monitoring Device into Upper Artery, Percutaneous Approach (ICD-10-PCS; 2021-05-07)
PROC: 0T9130Z Drainage of Left Kidney with Drainage Device, Percutaneous Approach (ICD-10-PCS; 2021-05-07)
PROC: 3E043XZ Introduction of Vasopressor into Central Vein, Percutaneous Approach (ICD-10-PCS; 2021-05-07)
PROC: 06HY33Z Insertion of Infusion Device into Lower Vein, Percutaneous Approach (ICD-10-PCS; 2021-05-07)
PROC: 30233N1 Transfusion of Nonautologous Red Blood Cells into Peripheral Vein, Percutaneous Approach (ICD-10-PCS; 2021-05-07)
PROC: 4A133B1 Monitoring of Arterial Pressure, Peripheral, Percutaneous Approach (ICD-10-PCS; 2021-05-07)
PROC: 5A12012 Performance of Cardiac Output, Single, Manual (ICD-10-PCS; 2021-05-08)
DX: A41.59 Other Gram-negative sepsis (principal); L89.223 Pressure ulcer of left hip, stage 3; J96.01 Acute respiratory failure with hypoxia; N17.0 Acute kidney failure with tubular necrosis; D65 Disseminated intravascular coagulation [defibrination syndrome]; K72.00 Acute and subacute hepatic failure without coma; J96.02 Acute respiratory failure with hypercapnia; R65.21 Severe sepsis with septic shock; J10.00 Influenza due to other identified influenza virus with unspecified type of pneumonia; E87.1 Hypo-osmolality and hyponatremia; N13.6 Pyonephrosis; G82.20 Paraplegia, unspecified; Z68.41 Body mass index [BMI] 40.0-44.9, adult; G93.1 Anoxic brain damage, not elsewhere classified; E27.49 Other adrenocortical insufficiency; I46.9 Cardiac arrest, cause unspecified; D63.8 Anemia in other chronic diseases classified elsewhere; E11.22 Type 2 diabetes mellitus with diabetic chronic kidney disease; E11.65 Type 2 diabetes mellitus with hyperglycemia; E78.5 Hyperlipidemia, unspecified; N18.9 Chronic kidney disease, unspecified; Z09 Encounter for follow-up examination after completed treatment for conditions other than malignant neoplasm; Z93.59 Other cystostomy status; Z87.440 Personal history of urinary (tract) infections; Z87.898 Personal history of other specified conditions; I12.9 Hypertensive chronic kidney disease with stage 1 through stage 4 chronic kidney disease, or unspecified chronic kidney disease; Z20.822 Contact with and (suspected) exposure to COVID-19; E66.01 Morbid (severe) obesity due to excess calories; N31.9 Neuromuscular dysfunction of bladder, unspecified; Z88.1 Allergy status to other antibiotic agents; Z79.4 Long term (current) use of insulin
CPT/HCPCS: 31500; 36415; 36600; 50432; 71045; 74177; 74470; 76942; 80053; 81001; 82550; 82553; 82805; 82948; 83605; 83735; 83880; 84100; 84436; 84443; 84479; 84484; 85025; 85610; 85730; 86850; 86900; 86920; 87040; 87070; 87071; 87086; 87186; 87205; 87400; 92950; 93005; 93306; 94002; 94003; 94660; 94799; 99251; 99285; C1729; C1769; J0171; J0456; J0692; J0696; J1720; J1815; J2001; J2020; J2250; J2270; J2405; J3010; J7030; J7050; J7070; P9016; Q9967; U0002